=== PATIENT | male | born 1960 | race Caucasian/White ===

== ENCOUNTER 2023-05-06 09:55 | Outpatient (AMB) | payer OTHER, SELFPAY ==
--- NOTE | 2023-05-06 10:23 | HO.NEPHOV ---
HPI HPI Comments History of Present Illness Details I had the privilege of seeing Rik in follow-up of his advanced chronic kidney disease. He has significant proteinuria. He had a renal biopsy in the past which showed minimal change disease. He was treated with prednisone and subsequently with cyclosporin. He denies any uremic symptoms. He is concerned about is declining renal functions. He is due to see [facility] transplant team for evaluation for transplantation in the future. He denies any chest pain, shortness of breath, nausea vomiting, proximal nocturnal dyspnea, orthopnea, urinary symptoms, orthostatic symptoms. He has lost some weight the last couple months. He avoids nonsteroidal anti-inflammatories. He maintains good hydration. His serum creatinine is currently stable. [facility] Medical History (Updated 05/11/23 @ 12:40 by Praneeth Gutierrez MD) Chronic kidney disease, stage 3 unspecified Hypertension Proteinuria Impaired fasting glucose Hyperlipidemia Asthma Family History Father Diabetes Heart disease Mother Hypertension Social History Alcohol intake: never Patient Tobacco Use Status: Never used Tobacco Vital Signs 05/06/23 10:25 Height 5 ft 11 in Weight 227 lb 2 oz BMI 31.7 BP 130/80 Blood Pressure Location Lt brachial Position Sitting Pulse 58 Pulse Source Pulse Oximeter Pulse Oximetry (%) 99 Oxygen Delivery Method Room Air Physical Exam Vital Signs: Last Vital Signs Pulse 58 05/06/23 10:25 BP 130/80 05/06/23 10:25 Pulse Ox 99 05/06/23 10:25 Oxygen Delivery Method Room Air 05/06/23 10:25 BMI result Body Mass Index 31.7 Const General: comfortable and no acute distress Orientation/consciousness: patient oriented x3 HEENT Head: Yes normocephalic Mouth: Normal oral and palatal mucosa present Eyes EOM: EOMs intact bilaterally Neck Neck: Yes supple Resp Auscultation: clear to auscultation bilaterally Cardio Jugular venous distension: no JVD Rate: regular rate GI Palpation (GI): Soft to palpation Auscultation: normal bowel sounds General: Yes no CVA tenderness Back/Spine/Pelvis Back: no CVA tenderness Skin General skin exam: no rashes or lesions noted Neuro General: patient oriented x3 and moves all extremities Assessment & Plan Assessment & Plan (1) Proteinuria: Code(s): R80.9 - Proteinuria, unspecified Qualifiers: Proteinuria type: other Qualified Code(s): R80.8 - Other proteinuria (2) Hypertension: Code(s): I10 - Essential (primary) hypertension Qualifiers: Hypertension type: primary hypertension Qualified Code(s): I10 - Essential (primary) hypertension (3) Chronic kidney disease, stage 4 (severe): Code(s): N18.4 - Chronic kidney disease, stage 4 (severe) Talya Jolly has longstanding chronic kidney disease with hypertension & proteinuria. He had a renal biopsy in years close to 2018 which showed minimal change. Differential diagnosis was FSGS. He was treated with prednisone and cyclosporin at that time. He has lost significant weight. He is on benazepril. His serum creatinine is fairly stable. He has been referred for transplant evaluation. I have ordered a 24 urine collection for creatinine clearance. All the follow-up lab orders were done for management of his CKD. He maintains good hydration and avoids nonsteroidal anti-inflammatories. I did not make any medication changes today. More than 50% of the time spent discussing about his chronic kidney disease and for the future treatment strategies. Answered all his questions. Follow-up appointment given. Orders: Orders Blood Urea Nitrogen 05/06/23 I10 - Essential (primary) hypertension, I12.9 - Hypertensive chronic kidney disease with stage 1 through stage 4 chronic kidney disease, or unspecified chronic kidney disease, N18.4 - Chronic kidney disease, stage 4 (severe), R80.9 - Proteinuria, unspecified Electrolytes 05/06/23 I10 - Essential (primary) hypertension, I12.9 - Hypertensive chronic kidney disease with stage 1 through stage 4 chronic kidney disease, or unspecified chronic kidney disease, N18.4 - Chronic kidney disease, stage 4 (severe), R80.9 - Proteinuria, unspecified Complete Blood Count Auto Diff 05/06/23 I10 - Essential (primary) hypertension, I12.9 - Hypertensive chronic kidney disease with stage 1 through stage 4 chronic kidney disease, or unspecified chronic kidney disease, N18.4 - Chronic kidney disease, stage 4 (severe), R80.9 - Proteinuria, unspecified Ferritin 05/06/23 I10 - Essential (primary) hypertension, I12.9 - Hypertensive chronic kidney disease with stage 1 through stage 4 chronic kidney disease, or unspecified chronic kidney disease, N18.4 - Chronic kidney disease, stage 4 (severe), R80.9 - Proteinuria, unspecified IRON PROFILE 05/06/23 I10 - Essential (primary) hypertension, I12.9 - Hypertensive chronic kidney disease with stage 1 through stage 4 chronic kidney disease, or unspecified chronic kidney disease, N18.4 - Chronic kidney disease, stage 4 (severe), R80.9 - Proteinuria, unspecified Parathyroid Hormone Intact 05/06/23 I10 - Essential (primary) hypertension, I12.9 - Hypertensive chronic kidney disease with stage 1 through stage 4 chronic kidney disease, or unspecified chronic kidney disease, N18.4 - Chronic kidney disease, stage 4 (severe), R80.9 - Proteinuria, unspecified Phosphorus 05/06/23 I10 - Essential (primary) hypertension, I12.9 - Hypertensive chronic kidney disease with stage 1 through stage 4 chronic kidney disease, or unspecified chronic kidney disease, N18.4 - Chronic kidney disease, stage 4 (severe), R80.9 - Proteinuria, unspecified Creatinine Clearance Urine 05/06/23 I10 - Essential (primary) hypertension, I12.9 - Hypertensive chronic kidney disease with stage 1 through stage 4 chronic kidney disease, or unspecified chronic kidney disease, N18.4 - Chronic kidney disease, stage 4 (severe), R80.9 - Proteinuria, unspecified Creatinine 05/06/23 I10 - Essential (primary) hypertension, I12.9 - Hypertensive chronic kidney disease with stage 1 through stage 4 chronic kidney disease, or unspecified chronic kidney disease, N18.4 - Chronic kidney disease, stage 4 (severe), R80.9 - Proteinuria, unspecified Calcium 05/06/23 I10 - Essential (primary) hypertension, I12.9 - Hypertensive chronic kidney disease with stage 1 through stage 4 chronic kidney disease, or unspecified chronic kidney disease, N18.4 - Chronic kidney disease, stage 4 (severe), R80.9 - Proteinuria, unspecified Coding Level of Care Code Est Pt Level 4 (20937) Diagnoses Other proteinuria R80.8 Proteinuria type: other Primary hypertension I10 Hypertension type: primary hypertension Chronic kidney disease, stage 4 (severe) N18.4 Results Reviewed Nephrology Results: No Data to Display
[2023-05-06 10:25] VITALS: BP 130/80; PULSE 58; O2SAT 99; BMI 31.7
== END 2023-05-06 11:14 | disposition home or self-care (01) ==
PROVIDERS: PCP Internal Medicine Endocrinology, Diabetes & Metabolism; Visit Provider Internal Medicine Nephrology
DX: R80.8 Other proteinuria (principal); I12.9 Hypertensive chronic kidney disease with stage 1 through stage 4 chronic kidney disease, or unspecified chronic kidney disease; N18.4 Chronic kidney disease, stage 4 (severe)
CPT/HCPCS: 99214

== ENCOUNTER → 2023-05-06 09:55 | Outpatient (BNVA) | payer OTHER, SELFPAY | PROVIDERS: PCP Internal Medicine Endocrinology, Diabetes & Metabolism; Visit Provider Internal Medicine Nephrology ==

== ENCOUNTER 2023-07-08 09:55 | Outpatient (AMB) | payer OTHER, SELFPAY ==
--- NOTE | 2023-07-08 09:59 | HO.NEPHOV_ITS ---
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 He has significant proteinuria. He had a renal biopsy in the past which showed minimal change disease. He was treated with prednisone and subsequently with cyclosporin. He denies any uremic symptoms. He is concerned about is declining renal functions. He is due to see [facility] [place] transplant team for evaluation for transplantation in the future. He denies any chest pain, shortness of breath, nausea vomiting, proximal nocturnal dyspnea, orthopnea, urinary symptoms, orthostatic symptoms. He has lost some weight the last couple months. He avoids nonsteroidal anti-inflammatories. He maintains good hydration. His serum creatinine is currently stable. [facility] Medical History (Updated 07/08/23 @ 10:23 by Praneeth Gutierrez MD) Chronic kidney disease, stage 3 unspecified Hypertension Proteinuria Impaired fasting glucose Hyperlipidemia Asthma Family History Father Diabetes Heart disease Mother Hypertension Social History Alcohol intake: never Patient Tobacco Use Status: Never used Tobacco Physical Exam Vital Signs: Last Vital Signs Pulse 59 07/08/23 10:00 BP 138/84 07/08/23 10:00 Pulse Ox 98 07/08/23 10:00 Oxygen Delivery Method Room Air 07/08/23 10:00 BMI result Body Mass Index 32.5 Const General: comfortable and no acute distress Orientation/consciousness: patient oriented x3 HEENT Head: Yes normocephalic Mouth: Normal oral and palatal mucosa present Eyes EOM: EOMs intact bilaterally Neck Neck: Yes supple Resp Auscultation: clear to auscultation bilaterally Cardio Jugular venous distension: no JVD Rate: regular rate GI Palpation (GI): Soft to palpation Auscultation: normal bowel sounds General: Yes no CVA tenderness Back/Spine/Pelvis Back: no CVA tenderness Skin General skin exam: no rashes or lesions noted Neuro General: patient oriented x3 and moves all extremities Extrem General: Yes no pedal edema Results Reviewed Nephrology Results: No Data to Display Assessment & Plan Assessment & Plan (1) CKD stage 4 secondary to hypertension: Code(s): I12.9 - Hypertensive chronic kidney disease with stage 1 through stage 4 chronic kidney disease, or unspecified chronic kidney disease; N18.4 - Chronic kidney disease, stage 4 (severe) Category: Medical (2) Hypertension: Code(s): I10 - Essential (primary) hypertension Category: Medical Qualifiers: Hypertension type: primary hypertension Qualified Code(s): I10 - Essential (primary) hypertension (3) Proteinuria: Code(s): R80.9 - Proteinuria, unspecified Category: Medical Qualifiers: Proteinuria type: other Qualified Code(s): R80.8 - Other proteinuria (4) Metabolic acidosis: Code(s): E87.20 - Acidosis, unspecified Category: Medical Plan Rik has longstanding chronic kidney disease with hypertension & proteinuria. He had a renal biopsy in years close to 2018 which showed minimal change. Differential diagnosis was FSGS. He was treated with prednisone and cyclosporin at that time. He has lost significant weight. He is on benazepril. His serum creatinine is fairly stable. He has been referred for transplant evaluation. His 24 urine collection for creatinine clearance is pending. All the follow-up lab orders were done for management of his CKD. He maintains good hydration and avoids nonsteroidal anti-inflammatories. I did not make any medication changes today. More than 50% of the time spent discussing about his chronic kidney disease and for the future treatment strategies. Answered all his questions. Follow-up appointment given. Medications: New sodium bicarbonate 325 mg PO DAILY 30 days 30 tabs 4RF Coding Level of Care Code Est Pt Level 4 (39894) Diagnoses CKD stage 4 secondary to hypertension I12.9; N18.4 Primary hypertension I10 Hypertension type: primary hypertension Other proteinuria R80.8 Proteinuria type: other Metabolic acidosis E87.20
[2023-07-08 10:00] VITALS: BP 138/84; PULSE 59; O2SAT 98; BMI 32.5
== END 2023-07-08 10:31 | disposition home or self-care (01) ==
PROVIDERS: PCP Internal Medicine Endocrinology, Diabetes & Metabolism; Visit Provider Internal Medicine Nephrology
DX: I12.9 Hypertensive chronic kidney disease with stage 1 through stage 4 chronic kidney disease, or unspecified chronic kidney disease (principal); N18.4 Chronic kidney disease, stage 4 (severe); I10 Essential (primary) hypertension; R80.8 Other proteinuria; E87.20 Acidosis, unspecified
CPT/HCPCS: 99214

== ENCOUNTER → 2023-07-08 09:55 | Outpatient (BNVA) | payer OTHER, SELFPAY | PROVIDERS: PCP Internal Medicine Endocrinology, Diabetes & Metabolism; Visit Provider Internal Medicine Nephrology ==

== ENCOUNTER 2023-10-12 09:56 | Outpatient (AMB) | payer OTHER, SELFPAY ==
--- NOTE | 2023-10-12 10:01 | HO.NEPHOV_ITS ---
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 He has significant proteinuria. He had a renal biopsy in the past which showed minimal change disease. He was treated with prednisone and subsequently with cyclosporin. He denies any uremic symptoms. He is concerned about is declining renal functions. He is due to see cardiology on Oct for [facility] [place] transplant team for evaluation for transplantation in the future. He denies any chest pain, shortness of breath, nausea vomiting, proximal nocturnal dyspnea, orthopnea, urinary symptoms, orthostatic symptoms. He has lost some weight the last couple months. He avoids nonsteroidal anti-inflammatories. He maintains good hydration. His serum creatinine is worse. He denies uremic symptoms [facility] Medical History (Updated 07/08/23 @ 10:23 by Parneeth Gutierrez MD) Chronic kidney disease, stage 3 unspecified Hypertension Proteinuria Impaired fasting glucose Hyperlipidemia Asthma Family History Father Diabetes Heart disease Mother Hypertension Social History Alcohol intake: never Patient Tobacco Use Status: Never used Tobacco Review of Systems Const All systems reviewed & are unremarkable except as noted in HPI and below Physical Exam Vital Signs: Last Vital Signs Pulse 65 10/12/23 10:02 BP 150/72 H 10/12/23 10:02 Pulse Ox 97 10/12/23 10:02 Oxygen Delivery Method Room Air 10/12/23 10:02 BMI result Body Mass Index 32.0 Const General: comfortable and no acute distress Orientation/consciousness: patient oriented x3 HEENT Head: Yes normocephalic Mouth: Normal oral and palatal mucosa present Eyes EOM: EOMs intact bilaterally Neck Neck: Yes supple Resp Auscultation: clear to auscultation bilaterally Cardio Jugular venous distension: no JVD Rate: regular rate GI Palpation (GI): Soft to palpation Auscultation: normal bowel sounds General: Yes no CVA tenderness Back/Spine/Pelvis Back: no CVA tenderness Skin General skin exam: no rashes or lesions noted Neuro General: patient oriented x3 and moves all extremities Extrem General: Yes no pedal edema Results Reviewed Nephrology Results: No Data to Display Assessment & Plan Assessment & Plan (1) Chronic kidney disease, stage 4 (severe): Code(s): N18.4 - Chronic kidney disease, stage 4 (severe) Category: Medical (2) Metabolic acidosis: Code(s): E87.20 - Acidosis, unspecified Category: Medical (3) Proteinuria: Code(s): R80.9 - Proteinuria, unspecified Category: Medical Qualifiers: Proteinuria type: other Qualified Code(s): R80.8 - Other proteinuria (4) Hypertension: Code(s): I10 - Essential (primary) hypertension Category: Medical Qualifiers: Hypertension type: primary hypertension Qualified Code(s): I10 - Essential (primary) hypertension Talya Jolly has longstanding chronic kidney disease with hypertension & proteinuria. He had a renal biopsy in years close to 2018 which showed minimal change. Differential diagnosis was FSGS. He was treated with prednisone and cyclosporin at that time. He has lost significant weight. He is on benazepril. His serum creatinine is fairly stable. He has been seen for transplant evaluation. His 24 urine collection for creatinine clearance is pending.I incre ased his NaHCO3 to 650 mg bid. All the follow-up lab orders were done for management of his CKD. He maintains good hydration and avoids nonsteroidal anti-inflammatories. I did not make any other medication changes today. More than 50% of the time spent discussing about his chronic kidney disease and for the future treatment strategies. Answered all his questions. Follow-up appointment given. Orders: Orders Electrolytes Today E87.20 - Acidosis, unspecified, I10 - Essential (primary) hypertension, N18.4 - Chronic kidney disease, stage 4 (severe), R80.8 - Other proteinuria Calcium Today E87.20 - Acidosis, unspecified, I10 - Essential (primary) hypertension, N18.4 - Chronic kidney disease, stage 4 (severe), R80.8 - Other proteinuria Phosphorus Today E87.20 - Acidosis, unspecified, I10 - Essential (primary) hypertension, N18.4 - Chronic kidney disease, stage 4 (severe), R80.8 - Other proteinuria Complete Blood Count Auto Diff Today E87.20 - Acidosis, unspecified, I10 - Essential (primary) hypertension, N18.4 - Chronic kidney disease, stage 4 (severe), R80.8 - Other proteinuria Creatinine Today E87.20 - Acidosis, unspecified, I10 - Essential (primary) hypertension, N18.4 - Chronic kidney disease, stage 4 (severe), R80.8 - Other proteinuria Blood Urea Nitrogen Today E87.20 - Acidosis, unspecified, I10 - Essential (primary) hypertension, N18.4 - Chronic kidney disease, stage 4 (severe), R80.8 - Other proteinuria Medications: Changed From sodium bicarbonate 325 mg PO DAILY 90 tabs 1RF To sodium bicarbonate 650 mg PO DAILY 30 days 30 tabs 3RF Coding Level of Care Code Est Pt Level 4 (04828) Diagnoses Chronic kidney disease, stage 4 (severe) N18.4 Metabolic acidosis E87.20 Other proteinuria R80.8 Proteinuria type: other Primary hypertension I10 Hypertension type: primary hypertension
[2023-10-12 10:02] VITALS: BP 150/72; PULSE 65; O2SAT 97; BMI 32.0
== END 2023-10-12 10:45 | disposition home or self-care (01) ==
PROVIDERS: PCP Internal Medicine Endocrinology, Diabetes & Metabolism; Visit Provider Internal Medicine Nephrology
DX: I12.9 Hypertensive chronic kidney disease with stage 1 through stage 4 chronic kidney disease, or unspecified chronic kidney disease (principal); N18.4 Chronic kidney disease, stage 4 (severe); R80.8 Other proteinuria; E87.21 Acute metabolic acidosis
CPT/HCPCS: 99214

== ENCOUNTER → 2023-10-12 09:56 | Outpatient (BNVA) | payer OTHER, SELFPAY | PROVIDERS: PCP Internal Medicine Endocrinology, Diabetes & Metabolism; Visit Provider Internal Medicine Nephrology ==

== ENCOUNTER 2023-12-09 15:27 | Outpatient (AMB) | payer OTHER, SELFPAY ==
--- NOTE | 2023-12-09 15:50 | HO.NEPHOV ---
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 He has significant proteinuria. He had a renal biopsy in the past which showed minimal change disease. He denies any uremic symptoms. He is concerned about is declining renal functions. He is due to see cardiology for stress test [place] [facility] [place] for evaluation for transplantation in the future ( Dec ). He also has a tx eval appt in [place] on Jan 10. He denies any chest pain, shortness of breath, nausea vomiting, proximal nocturnal dyspnea, orthopnea, urinary symptoms, orthostatic symptoms. He avoids nonsteroidal anti-inflammatories. He maintains good hydration. His serum creatinine is worse. He denies uremic symptoms [facility] Medical History (Updated 10/12/23 @ 11:06 by Praneeth Gutierrez MD) Chronic kidney disease, stage 3 unspecified Hypertension Proteinuria Impaired fasting glucose Hyperlipidemia Asthma Family History Father Diabetes Heart disease Mother Hypertension Social History Alcohol intake: never Patient Tobacco Use Status: Never used Tobacco Review of Systems Const All systems reviewed & are unremarkable except as noted in HPI and below Physical Exam Vital Signs: Last Vital Signs Pulse 63 12/09/23 15:51 BP 152/72 H 12/09/23 15:51 Pulse Ox 99 12/09/23 15:51 Oxygen Delivery Method Room Air 12/09/23 15:51 BMI result Body Mass Index 32.8 Const General: comfortable and no acute distress Orientation/consciousness: patient oriented x3 HEENT Head: Yes normocephalic Mouth: Normal oral and palatal mucosa present Eyes EOM: EOMs intact bilaterally Neck Neck: Yes supple Resp Auscultation: clear to auscultation bilaterally Cardio Jugular venous distension: no JVD Rate: regular rate GI Palpation (GI): Soft to palpation Auscultation: normal bowel sounds General: Yes no CVA tenderness Back/Spine/Pelvis Back: no CVA tenderness Skin General skin exam: no rashes or lesions noted Neuro General: patient oriented x3 and moves all extremities Extrem General: Yes no pedal edema Results Reviewed Nephrology Results: No Data to Display Assessment & Plan Assessment & Plan (1) CKD (chronic kidney disease) stage 5, GFR less than 15 ml/min: Code(s): N18.5 - Chronic kidney disease, stage 5 Category: Medical (2) Metabolic acidosis: Code(s): E87.20 - Acidosis, unspecified Category: Medical (3) Proteinuria: Code(s): R80.9 - Proteinuria, unspecified Category: Medical Qualifiers: Proteinuria type: other Qualified Code(s): R80.8 - Other proteinuria (4) Hypertension: Code(s): I10 - Essential (primary) hypertension Category: Medical Qualifiers: Hypertension type: primary hypertension Qualified Code(s): I10 - Essential (primary) hypertension Plan Rik has longstanding chronic kidney disease with hypertension & proteinuria. He had a renal biopsy in years close to 2018 which showed minimal change. Differential diagnosis was FSGS. He was treated with prednisone and cyclosporin at that time. He has lost significant weight. He is on benazepril. His serum creatinine is worse. He has been seen for transplant evaluation. I increased his NaHCO3 to 1300 mg AM and 650 mg PM. I have ordered 667 mg PO tid with meals. All the follow-up lab orders were done for management of his CKD. He maintains good hydration and avoids nonsteroidal anti-inflammatories. I did not make any other medication changes today. More than 50% of the time spent discussing about his chronic kidney disease and for the future treatment strategies. Answered all his questions. Follow-up appointment given. Orders: Orders Blood Urea Nitrogen 6 Weeks N18.5 - Chronic kidney disease, stage 5 Electrolytes 6 Weeks N18.5 - Chronic kidney disease, stage 5 Phosphorus 6 Weeks N18.5 - Chronic kidney disease, stage 5 Creatinine 6 Weeks N18.5 - Chronic kidney disease, stage 5 Calcium 6 Weeks N18.5 - Chronic kidney disease, stage 5 Medications: New calcium acetate to be taken with meals 667 mg PO TID 30 days 90 tabs 4RF Coding Level of Care Code Est Pt Level 4 (38375) Diagnoses CKD (chronic kidney disease) stage 5, GFR less than 15 ml/min N18.5 Metabolic acidosis E87.20 Other proteinuria R80.8 Proteinuria type: other Primary hypertension I10 Hypertension type: primary hypertension
[2023-12-09 15:51] VITALS: BP 152/72; PULSE 63; O2SAT 99; BMI 32.8
== END 2023-12-09 16:27 | disposition home or self-care (01) ==
PROVIDERS: PCP Internal Medicine Endocrinology, Diabetes & Metabolism; Visit Provider Internal Medicine Nephrology
DX: N18.5 Chronic kidney disease, stage 5 (principal); E87.20 Acidosis, unspecified; R80.8 Other proteinuria; I12.0 Hypertensive chronic kidney disease with stage 5 chronic kidney disease or end stage renal disease
CPT/HCPCS: 99214

== ENCOUNTER → 2023-12-09 15:27 | Outpatient (BNVA) | payer OTHER, SELFPAY | PROVIDERS: PCP Internal Medicine Endocrinology, Diabetes & Metabolism; Visit Provider Internal Medicine Nephrology ==

== ENCOUNTER 2024-02-08 11:08 | Outpatient (AMB) | payer OTHER, SELFPAY ==
--- NOTE | 2024-02-08 11:11 | HO.NEPHOV_ITS ---
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 He has significant proteinuria. He had a renal biopsy in the past which showed minimal change disease. He denies any uremic symptoms. He is concerned about his advanced CKD. He had a stress test for [facility] transplant team for evaluation for transplantion which showed reversible defect . He is also listed in [facility] for transplant. He denies any chest pain, shortness of breath, nausea vomiting, proximal nocturnal dyspnea, orthopnea, urinary symptoms, orthostatic symptoms. He avoids nonsteroidal anti-inflammatories. He maintains good hydration. His acidosis is worse. He denies uremic symptoms [facility] Medical History (Updated 10/12/23 @ 11:06 by Praneeth Gutierrez MD) Chronic kidney disease, stage 3 unspecified Hypertension Proteinuria Impaired fasting glucose Hyperlipidemia Asthma Family History Father Diabetes Heart disease Mother Hypertension Social History Alcohol intake: never Patient Tobacco Use Status: Never used Tobacco Review of Systems Const All systems reviewed & are unremarkable except as noted in HPI and below Physical Exam Vital Signs: Last Vital Signs Pulse 72 02/08/24 11:12 BP 164/70 H 02/08/24 11:12 Pulse Ox 97 02/08/24 11:12 Oxygen Delivery Method Room Air 02/08/24 11:12 BMI result Body Mass Index 31.2 Const General: comfortable and no acute distress Orientation/consciousness: patient oriented x3 HEENT Head: Yes normocephalic Mouth: Normal oral and palatal mucosa present Eyes EOM: EOMs intact bilaterally Neck Neck: Yes supple Resp Auscultation: clear to auscultation bilaterally Cardio Jugular venous distension: no JVD Rate: regular rate GI Palpation (GI): Soft to palpation Auscultation: normal bowel sounds General: Yes no CVA tenderness Back/Spine/Pelvis Back: no CVA tenderness Skin General skin exam: no rashes or lesions noted Neuro General: patient oriented x3 and moves all extremities Extrem General: Yes no pedal edema Results Reviewed Nephrology Results: No Data to Display Assessment & Plan Assessment & Plan (1) CKD (chronic kidney disease) stage 5, GFR less than 15 ml/min: Code(s): N18.5 - Chronic kidney disease, stage 5 Category: Medical (2) Metabolic acidosis: Code(s): E87.20 - Acidosis, unspecified Category: Medical (3) Proteinuria: Code(s): R80.9 - Proteinuria, unspecified Category: Medical Qualifiers: Proteinuria type: other Qualified Code(s): R80.8 - Other proteinuria (4) Hypertension: Code(s): I10 - Essential (primary) hypertension Category: Medical Qualifiers: Hypertension type: primary hypertension Qualified Code(s): I10 - Essential (primary) hypertension Plan Rik has longstanding chronic kidney disease with hypertension & proteinuria. He had a renal biopsy in years close to 2018 which showed minimal change. Differential diagnosis was FSGS. He was treated with prednisone and cyclosporin at that time. He has lost significant weight. He is on benazepril. His serum creatinine is worse. He is listed in [facility] and [facility]. He has a reversible defect in stress test recently which he is going to discuss with cardiology. He may need coronary angiogram. If he does, we may have to initiate him on renal replacement before angio. He is aware of this. I increased his NaHCO3 to 1300 mg tid. He can continue calcium acetate 667 mg PO tid with meals. He maintains good hydration and avoids nonsteroidal anti-inflammatories. I did not make any other medication changes today. Answered all his questions. Orders: Orders Electrolytes 2 Weeks N18.5 - Chronic kidney disease, stage 5 Blood Urea Nitrogen 1 Month N18.5 - Chronic kidney disease, stage 5 Creatinine 2 Weeks N18.5 - Chronic kidney disease, stage 5 Blood Urea Nitrogen 2 Weeks N18.5 - Chronic kidney disease, stage 5 Electrolytes 1 Month N18.5 - Chronic kidney disease, stage 5 Creatinine 1 Month N18.5 - Chronic kidney disease, stage 5 Coding Level of Care Code Est Pt Level 4 (72946) Diagnoses CKD (chronic kidney disease) stage 5, GFR less than 15 ml/min N18.5 Metabolic acidosis E87.20 Other proteinuria R80.8 Proteinuria type: other Primary hypertension I10 Hypertension type: primary hypertension
[2024-02-08 11:12] VITALS: BP 164/70; PULSE 72; O2SAT 97; BMI 31.2
--- OUTSIDE RECORDS SUMMARY | 2024-02-15 13:18 | XMS_ITS | Continuity of Care Document ---
Author Organization [facility] [address] [place] [address] Phone [phone] Care Team Providers Care Web Marketing Manager Name Role Phone Susan Roque M.D. Care Team Informati on Osteopathy Doctor [phone] Problems Active Problems Provider Date Essential hypertension Abigail Posey Onset: 11/20/2021 Asthma Susan Roque M.D. Ons et: 11/20/2021 Dyslipidemia Susan Roque M.D. Ons et: 11/20/2021 Gout Susan Roque M.D. Ons et: 11/20/2021 Obesity Susan Roque M.D. Ons et: 11/30/2021 Minimal change disease Abigail Posey Onset: 03/12/2023 Chronic kidney disease stage 4 Susan ronquillo M.D. Onset: 03/21/2023 Type 2 diabetes mellitus Susan Roque M.D. Onset: 03/21/2023 Anemia in chronic kidney disease Susan Locke M.D. 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 09/06/2023 Doxazosin Ydfyllzw3lf Tablets Take 1 Tablet By Mouth Every Day as Directed 90tabs Susan Lagos-Rad, M.D. 06/25/2022 Metoprolol Succinate ER50mg Tablets ER 24HR Take 1 Tablet By Mouth Every Day 90tamarcia Roque M.D. 06/25/2022 Advair [id number]/Act Aerosol Unknown Benazepril LOK85ah Tablets 1 tablet by mouth every day 90tamarcia Roque M.D. Nifedipine ER60mg Tablets ER 24HR 1 tab by mouth twice a day Unknown Montelukast Oplfif11lj Tablets 1 by mouth every day Unknown Multivitamin AdultsTablets 1 by mouth every day Susan Roque M.D. ProbioticTablets DR 1 by mouth every day Susan Roque M.D. Vital Signs Date Vital Result Comment 09/06/2023 7:59pm BP Systolic 128 mmHg BP Diastolic 82 mmHg Results Test Acquired Date Facility Test Result H/L Range Note Laboratory test finding 09/06/2023 Inhouse Glucose Fingerstick 84 Hemoglobin A1c 5.5% Comprehensive Metabolic Panl 03/12/2023 [facility] Glucose 140 mg/dL High (70-99) BUN 53 mg/dL High (8-23) Creatinine 4.1 mg/dL High (0.7-1. 2) Sodium 139 mmol/L (133-14 5) Potassium 5.4 mmol/L High (3.6-5. 2) Chloride 105 mmol/L (98-107 ) Bicarbonate 23 mmol/L (22-29) Anion Gap 11 (4-17) Albumin 4.3 GM/DL (3.4-4. 8) Calcium 9.3 mg/dL (8.6-10 .5) Bilirubin,Total 0.3 mg/dL (0-1.2 ) Total Protein 6.9 GM/DL (6.2-8. 2) Ag Ratio 1.7 Ast 15 U/L (0-40) Alk Phos 107 U/L (40-129 ) Alt 13 U/L (0-41) Estimated GFR Creatinine 16 ML/MIN/1.73 M2 1 Lipid Panel 03/12/2023 [facility] Cholesterol, Total 166 mg/dL (<200) Triglyceride 134 mg/dL (<150) HDL Chol 34 mg/dL Low (>39) LDL Cholesterol , Calculated 105 mg/dL (0-130) Non HDL Cholesterol (Calc) 132 mg/dL (<160) Laboratory test finding 03/12/2023 [facility] Cortisol 14.8 g /dL 2 Complete Abc With Diff 03/12/2023 [facility] WBC 11.1 K/MM3 High (4.0-11 .0) RBC 4.23 M/MM3 Low (4.70-6 .10) HGB 12.5 GM/DL Low (13.7-1 7.1) HCT 38.4 % Low (40.5-5 0.0) MCV 90.8 FL (80.0-9 4.0) MCH 29.6 pg (27.0-3 4.0) MCHC 32.6 g/dL Low (33.0-3 7.0) PLT 187 K/MM3 (150-46 0) RDW-SD 46.5 FL (<47.0) MPV 9.6 FL (9.4-12 .4) Automated NRBC 0.0 #/100WBC'S Abs. NRBC 0.0 K/MM3 Neut # 9.0 K/MM3 High (1.3-7. 0) Lymph # 1.0 K/MM3 (0.8-3. 1) [place]# 0.9 K/MM3 (0.4-1. 3) Eo # 0.2 K/MM3 (0.0-0. 4) Baso # 0.0 K/MM3 (0.0-0. 1) Abs. Imm Gran 0.0 K/MM3 Neut 80.9 % High (44-76) Lymph 9.1 % Low (15-43) Monocyte 7.7 % (4.5-10 .5) Eo 1.6 % (0-6) Baso 0.4 % (0-2) Imm Gran 0.3 % Iron & Tibc 03/12/2023 [facility] Iron 32 g /dL Low (45-160 ) Unsaturated Iro n Binding [place] 209 g /dL (110-37 0) Est T. Iron Bin d Capacity 241 g /dL (155-53 0) % Iron Saturation 13 % Low (20-55 ) Immunofixation Serum 03/12/2023 [facility] Immunoglobulin Igg 798 mg/dL (700-16 00) Immunoglobulin Iga 201 mg/dL (70-400 ) Immunoglobulin Igm 54 mg/dL (40-230 ) Immunofix Normal immunofix <SEE NOTE> 3 Laboratory test finding 03/12/2023 [facility] Ferritin 690 NG/ML High (16-294 ) PSA Screen 0.9 NG/ML (0-4) 4 Laboratory test finding 03/12/2023 Inhouse Glucose Fingerstick 139 Hemoglobin A1c 5.6% Renal Function Panel 09/30/2022 [facility] Glucose 105 mg/dL High (70-99) BUN 68 mg/dL High (8-23) Creatinine 4.0 mg/dL High (0.7-1. 2) Sodium 140 mmol/L (133-14 5) Potassium 4.4 mmol/L (3.6-5. 2) Chloride 104 mmol/L (98-107 ) Bicarbonate 22 mmol/L (22-29) Anion Gap 14 (4-17) Albumin 4.3 GM/DL (3.4-4. 8) Calcium 9.4 mg/dL (8.6-10 .5) Phosphorus 5.0 mg/dL High (2.5-4. 5) Estimated GFR Creatinine 16 ML/MIN/1.73 M2 5 TP/CR Ratio, Urine 09/30/2022 [facility] TP/CR Ratio 3.44 High (0-0.2) Urine Protein 249 mg/dL Urine Creat 72.5 mg/dL Laboratory test finding 09/30/2022 [facility] Cyclosporine 64 NG/ML Low (100-35 0) Renal Function Panel 08/19/2022 [facility] Glucose 110 mg/dL High (70-99) BUN 65 mg/dL High (8-23) Creatinine 3.9 mg/dL High (0.7-1. 2) Sodium 138 mmol/L (133-14 5) Potassium 4.4 mmol/L (3.6-5. 2) Chloride 103 mmol/L (98-107 ) Bicarbonate 22 mmol/L (22-29) Anion Gap 13 (4-17) Albumin 4.4 GM/DL (3.4-4. 8) Calcium 9.8 mg/dL (8.6-10 .5) Phosphorus 4.7 mg/dL High (2.5-4. 5) Estimated GFR Creatinine 17 ML/MIN/1.73 M2 6 TP/CR Ratio, Urine 08/19/2022 [facility] TP/CR Ratio 3.44 High (0-0.2) Urine Protein 249 mg/dL Urine Creat 72.5 mg/dL Laboratory test finding 11/25/2021 [facility] Cortisol 2.1 g /dL 7 1 Creatinine based est imated glomerular filtration (eGFR) in adults is calculated using the National [employer] recommended 202 CKD-EPI equation. Estimates GFR from serum creatinine, age and sex. 2 Reference Range: 6-10 am: 6.0-18.4 ug/dL 4-8 pm: 2.7-10.5 ug/dL 3 Interpreted by Tamika Nobles MD 4 TEST PERFORMED USING THE CHRISTOPHE ELECTROCHEMILLUMINESCENCE TOTAL PSA ASSAY. PSA VALUES OBTAINED WITH OTHER ASSAY METHODS OR KITS CANNOT BE USED INTERCHANGEABLY. 5 Creatinine based est imated glomerular filtration (eGFR) in adults is calculated using the National Kid[employer] recommended 202 CKD-EPI equation. Estimates GFR from serum creatinine, age and sex. 6 Creatinine based est imated glomerular filtration (eGFR) in adults is calculated using the National [employer] recommended 202 CKD-EPI equation. Estimates GFR from serum creatinine, age and sex. 7 Reference Range: 6-10 am: 6.0-18.4 ug/dL 4-8 pm: 2.7-10.5 ug/dL Procedures Date Code Description Status 03/12/2023 98274 Collection Of Venous Blood B y Venipuncture Completed 11/20/2021 NSHOWOFF No Show Office Visit Complet ed Medical Devices Description No Information Available Encounters Type Date Location Provider Dx Diagnosis Office Visit 09/06/2023 1:30p Main Office Susan Roque M.D. I10 Essential (primary) hypertension N18.4 Chronic kidney disea se, stage 4 (severe) E66.9 Obesity, unspecified J45.40 Moderate persistent asthma, uncomplicated Z00.00 Encntr for general a dult medical exam w/o abnormal findings Z68.32 Body mass index [BMI ] 32.0-32.9, adult Assessments Date Code Description Provider 09/06/2023 I10 Essential (primary) hyperten zaheer Abigail Posey.D. 09/06/2023 N18.4 Chronic kidney d isease, stage 4 (severe) Susan Roque M.D. 09/06/2023 E66.9 Obesity, unspecified Elviawalter pichardo Delilah Roque 09/06/2023 J45.40 Moderate persist ent asthma, uncomplicated Susan Roque M.D. 09/06/2023 Z00.00 Encounter for ge neral adult medical examination without abnormal findings Susan Roque M.D. 09/06/2023 Z68.32 Body mass index [BMI] 32.0-3 2.9, adult Susan Roque M.D. Plan of Treatment Future Appointment(s):* 03/10/2024 8:15 am - Susan Roque M.D. at Main Office 09/06/2023 - Susan Roque M.D.* I10 Essential (primary) hypertension * N18.4 Chronic kidney disease, stage 4 (severe) * E66.9 Obesity, unspecified * J45.40 Moderate persistent asthma, uncomplicated * Z00.00 Encounter for general adult medical examination without abnormal findings * Z68.32 Body mass index [BMI] 32.0-32.9, adult * Functional Status Description No Information Available Mental Status Description No Information Available Referrals Refer to Reason for Referral Status Appt Chip e [facility] Had a nuclear stress test done and showed a mild heart attack Created [address] [facility] [address] [facility], [address] [place] [address] [phone] Matt Dacosta MD Closed [address] [place] [address] [phone] [facility] HOME SLEEP STUDY RULE OUT SLEEP APNEA DX OBESITY, HYPERTENSION, DIABETES AND CHRONIC KIDNEY DISEASE STAGE 4 Closed [address] [place] [address] [phone] Matt Dacosta MD CHRONIC KIDNEY DISEASE Closed [address] [place] [address] [phone]
== END 2024-02-08 12:03 | disposition home or self-care (01) ==
PROVIDERS: PCP Internal Medicine Endocrinology, Diabetes & Metabolism; Visit Provider Internal Medicine Nephrology
DX: N18.5 Chronic kidney disease, stage 5 (principal); E87.20 Acidosis, unspecified; R80.8 Other proteinuria; I12.0 Hypertensive chronic kidney disease with stage 5 chronic kidney disease or end stage renal disease
CPT/HCPCS: 99214

== ENCOUNTER → 2024-02-08 11:08 | Outpatient (BNVA) | payer OTHER, SELFPAY | PROVIDERS: PCP Internal Medicine Endocrinology, Diabetes & Metabolism; Visit Provider Internal Medicine Nephrology ==

== ENCOUNTER 2024-03-09 09:26 | Outpatient (AMB) | payer OTHER, SELFPAY ==
--- OUTSIDE RECORDS SUMMARY | 2024-03-09 09:29 | XMS_ITS | Continuity of Care Document ---
Author Organization [facility] [address] [place] [address] Phone [phone] Care Team Providers Care Network Field Engineer Name Role Phone Susan Roque M.D. 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 09/06/2023 Doxazosin Uioovjev2ph Tablets Take 1 Tablet By Mouth Every Day as Directed 90tabs Susan Lagos-Rad, M.D. 06/25/2022 Metoprolol Succinate ER50mg Tablets ER 24HR Take 1 Tablet By Mouth Every Day 90tamarcia Roque M.D. 06/25/2022 Advair Gfrvrt451-24qlx/Act Aerosol Unknown Benazepril PRZ53dv Tablets 1 tablet by mouth every day 90tamarcia Roque M.D. Nifedipine ER60mg Tablets ER 24HR 1 tab by mouth twice a day Unknown Montelukast Ivogsc47ck Tablets 1 by mouth every day Unknown [...] Hemoglobin A1c 5.5% Comprehensive Metabolic Panl 03/12/2023 [facility] Glucose 140 mg/dL High [...] 16 ML/MIN/1.73 M2 1 Lipid Panel 03/12/2023 [facility] Cholesterol, Total 166 mg/dL (<200) Triglyceride 134 mg/dL (<150) HDL Chol 34 mg/dL Low (>39) LDL Cholesterol , Calculated 105 mg/dL (0-130) Non HDL Cholesterol (Calc) 132 mg/dL (<160) Laboratory test finding 03/12/2023 [facility] Cortisol 14.8 g /dL 2 Complete Abc With Diff 03/12/2023 [facility] WBC 11.1 K/MM3 High [...] 0) Lymph # 1.0 K/MM3 (0.8-3. 1) [place]# 0.9 K/MM3 (0.4-1. 3) Eo # 0.2 K/MM3 (0.0-0. 4) Baso # 0.0 K/MM3 (0.0-0. 1) Abs. Imm Gran 0.0 K/MM3 Neut 80.9 % High (44-76) Lymph 9.1 % Low (15-43) Monocyte 7.7 % (4.5-10 .5) Eo 1.6 % (0-6) Baso 0.4 % (0-2) Imm Gran 0.3 % Iron & Tibc 03/12/2023 [facility] Iron 32 g /dL Low (45-160 ) Unsaturated Iro n Binding [place] 209 g /dL (110-37 0) Est T. Iron Bin d Capacity 241 g /dL (155-53 0) % Iron Saturation 13 % Low (20-55 ) Immunofixation Serum 03/12/2023 [facility] Immunoglobulin Igg 798 mg/dL (700-16 00) Immunoglobulin Iga 201 mg/dL (70-400 ) Immunoglobulin Igm 54 mg/dL (40-230 ) Immunofix Normal immunofix <SEE NOTE> 3 Laboratory test finding 03/12/2023 [facility] Ferritin 690 NG/ML High (16-294 ) PSA Screen 0.9 NG/ML (0-4) 4 Laboratory test finding 03/12/2023 Inhouse Glucose Fingerstick 139 Hemoglobin A1c 5.6% Renal Function Panel 09/30/2022 [facility] Glucose 105 mg/dL High [...] ML/MIN/1.73 M2 5 TP/CR Ratio, Urine 09/30/2022 [facility] TP/CR Ratio 3.44 High (0-0.2) Urine Protein 249 mg/dL Urine Creat 72.5 mg/dL Laboratory test finding 09/30/2022 [facility] Cyclosporine 64 NG/ML Low (100-35 0) Renal Function Panel 08/19/2022 [facility] Glucose 110 mg/dL High [...] ML/MIN/1.73 M2 6 TP/CR Ratio, Urine 08/19/2022 [facility] TP/CR Ratio 3.44 High (0-0.2) Urine Protein 249 mg/dL Urine Creat 72.5 mg/dL Laboratory test finding 11/25/2021 [facility] Cortisol 2.1 g /dL [...] ug/dL Procedures Date Code Description Status 03/12/2023 74598 Collection Of Venous Blood B y Venipuncture [...] Roque M.D. Plan of Treatment Future Appointment(s):* 04/25/2024 8:45 am - Susan Roque M.D. at Main [...] Reason for Referral Status Appt Chip e [facility] Had a nuclear stress test done and showed a mild heart attack Created [address] [facility], [address] [place] [address] [phone] Matt Dacosta MD Closed [address] [place] [address] [phone] [facility] HOME SLEEP STUDY RULE OUT SLEEP APNEA DX OBESITY, HYPERTENSION, DIABETES AND CHRONIC KIDNEY DISEASE STAGE 4 Closed [address] [facility] [address] [place] [address] [phone] Matt Dacosta MD CHRONIC KIDNEY DISEASE Closed [address] [place] [address] [phone]
--- NOTE | 2024-03-09 09:48 | HO.NEPHOV ---
Vital Signs 03/09/24 09:51 Height 5 ft 11 in Weight 214 lb 6 oz BMI 29.9 BP 130/60 Blood Pressure Location Lt brachial Position Sitting Pulse 73 Pulse Source Pulse Oximeter Pulse Oximetry (%) 97 Oxygen Delivery Method Room Air Intake Visit Reasons: 1mon follow up w/labs-Conf Director Payment Required: No Accompanied by: Self / Same As Patient Allergies No Known Allergies Allergy (Verified 03/09/24 09:51) HPI Comments Details: Rik was seen in follow-up of his advanced chronic kidney disease. He has significant proteinuria. He had a renal biopsy in the past which showed minimal change disease. He is on [facility] transplant active list He denies any chest pain,proximal nocturnal dyspnea, orthopnea, urinary symptoms, orthostatic symptoms. He has unintentional weight loss and lack of appetite. He avoids nonsteroidal anti-inflammatories. He maintains good hydration. His acidosis is worse. [facility] Medical History (Updated 10/12/23 @ 11:06 by Praneeth Gutierrez MD) Chronic kidney disease, stage 3 unspecified Hypertension Proteinuria Impaired fasting glucose Hyperlipidemia Asthma Family History Father Diabetes Heart disease Mother Hypertension Social History Alcohol intake: never Patient Tobacco Use Status: Never used Tobacco Review of Systems Const All systems reviewed & are unremarkable except as noted in HPI and below Physical Exam Vital Signs: Last Vital Signs Pulse 73 03/09/24 09:51 BP 130/60 03/09/24 09:51 Pulse Ox 97 03/09/24 09:51 Oxygen Delivery Method Room Air 03/09/24 09:51 BMI result Body Mass Index 29.9 Const General: comfortable and no acute distress Orientation/consciousness: patient oriented x3 HEENT Head: Yes normocephalic Mouth: Normal oral and palatal mucosa present Eyes EOM: EOMs intact bilaterally Neck Neck: Yes supple Resp Auscultation: clear to auscultation bilaterally Cardio Jugular venous distension: no JVD Rate: regular rate GI Palpation (GI): Soft to palpation Auscultation: normal bowel sounds General: Yes no CVA tenderness Back/Spine/Pelvis Back: no CVA tenderness Skin General skin exam: no rashes or lesions noted Neuro General: patient oriented x3 and moves all extremities Extrem General: Yes no pedal edema Results Reviewed Nephrology Results: No Data to Display Assessment & Plan Assessment & Plan (1) CKD (chronic kidney disease) stage 5, GFR less than 15 ml/min: Code(s): N18.5 - Chronic kidney disease, stage 5 Category: Medical (2) Metabolic acidosis: Code(s): E87.20 - Acidosis, unspecified Category: Medical (3) Hypertension: Code(s): I10 - Essential (primary) hypertension Category: Medical Qualifiers: Hypertension type: primary hypertension Qualified Code(s): I10 - Essential (primary) hypertension Plan Rik has longstanding chronic kidney disease with hypertension & proteinuria. He had a renal biopsy in years close to 2018 which showed minimal change. Differential diagnosis was FSGS. He was treated with prednisone and cyclosporin at that time. He has lost significant weight. He is on benazepril. He is listed in [facility]. He should continue NaHCO3 1300 mg tid. He can continue calcium acetate 667 mg PO tid with meals. He maintains good hydration and avoids nonsteroidal anti-inflammatories. I did not make any other medication changes today. I have arranged for PD catheter in preparation for PD. Answered all his questions Orders: Orders Blood Urea Nitrogen Today E87.20 - Acidosis, unspecified, I10 - Essential (primary) hypertension, N18.5 - Chronic kidney disease, stage 5 Electrolytes Today E87.20 - Acidosis, unspecified, I10 - Essential (primary) hypertension, N18.5 - Chronic kidney disease, stage 5 Calcium Today E87.20 - Acidosis, unspecified, I10 - Essential (primary) hypertension, N18.5 - Chronic kidney disease, stage 5 Creatinine Today E87.20 - Acidosis, unspecified, I10 - Essential (primary) hypertension, N18.5 - Chronic kidney disease, stage 5 Phosphorus Today E87.20 - Acidosis, unspecified, I10 - Essential (primary) hypertension, N18.5 - Chronic kidney disease, stage 5 Complete Blood Count Auto Diff Today E87.20 - Acidosis, unspecified, I10 - Essential (primary) hypertension, N18.5 - Chronic kidney disease, stage 5 Medications: Changed From sodium bicarbonate 650 mg PO TID 270 tabs 0RF To sodium bicarbonate 1,300 mg (2 x 650 mg) PO TID 270 tabs 3RF Coding Level of Care Code Est Pt Level 4 (77875) Diagnoses CKD (chronic kidney disease) stage 5, GFR less than 15 ml/min N18.5 Metabolic acidosis E87.20 Primary hypertension I10 Hypertension type: primary hypertension
[2024-03-09 09:51] VITALS: BP 130/60; PULSE 73; O2SAT 97; BMI 29.9
== END 2024-03-09 10:18 | disposition home or self-care (01) ==
PROVIDERS: PCP Internal Medicine Endocrinology, Diabetes & Metabolism; Visit Provider Internal Medicine Nephrology
DX: N18.5 Chronic kidney disease, stage 5 (principal); E87.20 Acidosis, unspecified; I12.0 Hypertensive chronic kidney disease with stage 5 chronic kidney disease or end stage renal disease
CPT/HCPCS: 99214

== ENCOUNTER → 2024-03-09 09:26 | Outpatient (BNVA) | payer OTHER, SELFPAY | PROVIDERS: PCP Internal Medicine Endocrinology, Diabetes & Metabolism; Visit Provider Internal Medicine Nephrology ==

== ENCOUNTER → 2024-04-08 | Outpatient (BNV) | payer OTHER, SELFPAY | PROVIDERS: PCP Internal Medicine Endocrinology, Diabetes & Metabolism; Visit Provider Internal Medicine Nephrology | DX: N18.6 End stage renal disease (principal) | CPT/HCPCS: 90962 ==

== ENCOUNTER 2024-04-11 09:50 | Outpatient (AMB) | payer OTHER, SELFPAY ==
--- NOTE | 2024-04-11 09:53 | HO.NEPHOV_ITS ---
Vital Signs 04/11/24 09:54 Height 5 ft 11 in Weight 230 lb 2 oz BMI 32.1 BP 150/70 H Blood Pressure Location Lt brachial Position Sitting Pulse 79 Pulse Source Pulse Oximeter Pulse Oximetry (%) 92 Oxygen Delivery Method Room Air Intake Visit Reasons: 1 mnth f/u-Conf Supervisor Data Processing Required: No Accompanied by: Self / Same As Patient Allergies No Known Allergies Allergy (Verified 04/11/24 09:54) HPI Comments Details: Rik was seen in follow-up of his advanced chronic kidney disease, now has ESRD. He has significant proteinuria. He had a renal biopsy in the past which showed minimal change disease. He is on [facility] and [facility] transplant active list He denies any chest pain,proximal nocturnal dyspnea, orthopnea, urinary symptoms, orthostatic symptoms. He avoids nonsteroidal anti-inflammatories. He maintains good hydration. His acidosis is better. He has edema and SOBE on exertion. [facility] Medical History (Updated 10/12/23 @ 11:06 by Praneeth Gutierrez MD) Chronic kidney disease, stage 3 unspecified Hypertension Proteinuria Impaired fasting glucose Hyperlipidemia Asthma Family History Father Diabetes Heart disease Mother Hypertension Social History Alcohol intake: never Patient Tobacco Use Status: Never used Tobacco Review of Systems Const All systems reviewed & are unremarkable except as noted in HPI and below Physical Exam Vital Signs: Last Vital Signs Pulse 79 04/11/24 09:54 BP 150/70 H 04/11/24 09:54 Pulse Ox 92 04/11/24 09:54 Oxygen Delivery Method Room Air 04/11/24 09:54 BMI result Body Mass Index 32.1 Const General: comfortable and no acute distress Orientation/consciousness: patient oriented x3 HEENT Head: Yes normocephalic Mouth: Normal oral and palatal mucosa present Eyes EOM: EOMs intact bilaterally Neck Neck: Yes supple Resp Auscultation: clear to auscultation bilaterally Cardio Jugular venous distension: no JVD Rate: regular rate GI Palpation (GI): Soft to palpation Auscultation: normal bowel sounds General: Yes no CVA tenderness Back/Spine/Pelvis Back: no CVA tenderness Skin General skin exam: no rashes or lesions noted Neuro General: patient oriented x3 and moves all extremities Extrem Right upper extremity: edema Results Reviewed Nephrology Results: No Data to Display Assessment & Plan Assessment & Plan (1) CKD (chronic kidney disease) stage 5, GFR less than 15 ml/min: Code(s): N18.5 - Chronic kidney disease, stage 5 Category: Medical (2) Metabolic acidosis: Code(s): E87.20 - Acidosis, unspecified Category: Medical (3) Hypertension: Code(s): I10 - Essential (primary) hypertension Category: Medical Qualifiers: Hypertension type: primary hypertension Qualified Code(s): I10 - Essen tial (primary) hypertension Plan Rik has longstanding chronic kidney disease with hypertension & proteinuria. He had a renal biopsy in years close to 2018 which showed minimal change. Differential diagnosis was FSGS. He was treated with prednisone and cyclosporin at that time. He has lost significant weight. He is on benazepril, dose I increased to 40 mg daily. Inganikkie started him on lasix 440 mg bid. I reduced Nifedipine to one tablet daily. He is listed in [facility] and [facility]. I reduced NaHCO3 mg tid. He can continue calcium acetate 667 mg PO tid with meals. He maintains good hydration and avoids nonsteroidal anti-inflammatories. I did not make any other medication changes today. He is getting PD training. Answered all his questions Medications: New furosemide (Lasix) 40 mg PO BID 60 tabs 4RF Changed From benazepril 40 mg PO DAILY To benazepril 40 mg PO DAILY 90 days 90 tabs 3RF Coding Level of Care Code Est Pt Level 4 (85105) Diagnoses CKD (chronic kidney disease) stage 5, GFR less than 15 ml/min N18.5 Metabolic acidosis E87.20 Primary hypertension I10 Hypertension type: primary hypertension
[2024-04-11 09:54] VITALS: BP 150/70; PULSE 79; O2SAT 92; BMI 32.1
--- OUTSIDE RECORDS SUMMARY | 2024-04-11 10:33 | XMS_ITS | Encounter Summary ---
Author Organization [facility] Address [address] [facility] [address] [place] [address] Phone Care Team Providers Care Stock Turner Name Role Phone Ssuan Roque MD Primary Care Provider Encounter Details Date Type Department Care Team (Late st Contact Info) Description 07/21/2021 Telephone [facility] [address] [place] [address] Praneeth Gutierrez MD Social History Tobacco Use Types Packs/Day Years Used Date Smoking Tobacco: Never Smokeless Tobacco: Never Alcohol Use Standard Drinks/Week Comments No 0 (1 standard drink = 0.6 oz pur e alcohol) Sex and Gender Information Value Date Recorded Sex Assigned at Not on file Legal Sex Male 4:59 PM EST Gender Identity Not on file Sexual Orientation Not on file documented as of this encounter Miscellaneous Notes * Telephone Encounter - Jessica Chaney - 07/21/2021 3:56 PM EDT Pts pharmacy called, they received a drug interaction between the cyclosporine and fenofibrate. Would it still be ok for him to thaddeus both. Please advise CB# [phone] documented in this encounter Plan of Treatment Not on file documented as of this encounter Visit Diagnoses Not on filedocumented in this encounter Care Teams Stock Turner Relationship Specialty Start Date End Date Susan Roque MD [address] [place] [address] [address] [place] [id number] PCP - General 03/18/20 documented as of this encounter
--- OUTSIDE RECORDS SUMMARY | 2024-04-11 10:33 | XMS_ITS | Clinical Summary ---
Author Organization [facility] Address [address] [facility] [address] [place] [address] Phone Care Team Providers Care Podiatric Medicine Professor Name Role Phone Susan Roque MD Primary Care Provider Allergies No known active allergies Medications montelukast (SINGULAIR) 10 MG tablet Take 1 tablet by mouth 1 (one) time each day Active DOXAZOSIN MESYLATE PO Take 2 mg by mouth 1 (one) time each day Active metoprolol succinate XL (TOPROL XL) 50 MG 24 hr tablet Take 50 mg by mouth 1 (one) time each day Do not crush or chew. Active doxazosin (CARDURA) 2 MG tablet Take 1 tablet by mouth 1 (one) time each day 09/25/2021 Active Advair Diskus 250-50 MCG/ACT aerosol powder 10/12/2021 Acti ve cycloSPORINE (SandIMMUNE) 100 MG capsule Take 1 capsule by mouth in the morning and 1 capsule in the evening. 05/18/2022 Active ofloxacin (OCUFLOX) 0.3 % ophthalmic solution 05/03/2022 Active NIFEdipine XL (PROCARDIA XL) 60 MG 24 hr tabletIndicatio ns:Chronic kidney disease stage 3 (HCC) Take 2 tablets (120 mg total) by mouth 1 (one) time each day Do not crush, chew, or split. 180 tablet 3 02/22/2023 Active benazepril (Lotensin) 20 MG tabletIndicatio ns:Chronic kidney disease stage 3 (HCC),Essential hypertension,Im paired fasting glycemia Take 1 tablet (20 mg total) by mouth 1 (one) time each day 90 tablet 3 06/15/2023 5 Active Active Problems Problem Noted Date Diagnosed Date Minimal change disease 03/15/2023 Asthma 11/20/2021 Dyslipidemia 11/20/2021 Gout, not otherwise specified 11/20/2021 Impaired fasting glycemia 11/20/2021 Obese class II 07/21/2021 Hypertension 02/18/2021 Chronic kidney disease stage 3 09/04/2020 Essential hypertension 09/04/2020 Proteinuria 09/04/2020 Family History Medical History Relation Comments Diabetes Father Heart disease Father Hypertension Mother Relation Status Comments Father Alive Mother Alive Social History Tobacco Use Types Packs/Day Years Used Date Smoking Tobacco: Never Smokeless Tobacco: Never Tobacco Cessation:Counseling Given: Not Answered Alcohol Use Standard Drinks/Week Comments No 0 (1 standard drink = 0.6 oz pur e alcohol) Sex and Gender Information Value Date Recorded Sex Assigned at Not on file Legal Sex Male 4:59 PM EST Gender Identity Not on file Sexual Orientation Not on file Last Filed Vital Signs Vital Sign Reading Time Taken Comments Blood Pressure 140/72 03/17/2023 11:03 AM EST Pulse 66 03/17/2023 11:03 AM EST Temperature - - Respiratory Rate - - Oxygen Saturation 98% 03/17/2023 11:03 AM EST Inhaled Oxygen Concentration - - Weight 115 kg (254 lb 3.2 oz) 03/17/2023 11:03 A M EST Height 180.3 cm (5' 11 ) 03/17/2023 11:03 AM EST Body Mass Index 35.45 03/17/2023 11:03 AM EST Plan of Treatment Health Maintenance Due Date Last Done Comments Pneumococcal Vaccine: Pediat rics (0 to 5 Years) and At-Risk Patients (6 to 64 Years) (1 of 2 - PCV) 1966 Colorectal Cancer Screening: Annual FOBT 2010 Colorectal Cancer Screening: Colonoscopy 2010 Colorectal Cancer Screening: Sigmoidoscopy 2010 Influenza Vaccine (#1) 2023 Diabetes: Hemoglobin A1C 03/21/2024 05/20/2020 Diabetes: Ophthalmology Exam 03/21/2024 Diabetes: Pedal Pulse Checked 03/21/2024 Diabetes: Sensory Foot Exam 03/21/2024 Diabetes: Visual Foot Exam 03/21/2024 Hepatitis B Vaccine Aged Out No longe r eligible based on patient's age to complete this topic Procedures Procedure Name Priority Date/Time Associated Diagnosis Comments EXT RESULT ENTRY Routine 05/20/2020 from Last 3 Months or Most Recently Relevant to Health Maintenance Results * (ABNORMAL) EXT RESULT ENTRY (05/20/2020) WBC 12.1(A) 3.3 - 10.0 10*3/ML Red Blood Cell Count 5.38 Hemoglobin 16.6 13.5 - 17.5 Hematocrit 48.9 41.0 - 53.0 Platelets 211 150 - 399 10*3/UL MCV 90.9 82.0 - 108.0 Sodium 141 137 - 147 Potassium 4.7 3.4 - 5.5 Chloride 102 99 - 108 Bicarbonate (CO2) 27 22 - 30 mmol/L Anion Gap 12 <=30 MMOL/L Glucose 110 60 - 200 BUN 27(A) 4 - 21 mg/dL Creatinine 2.00(A) 0.60 - 1.30 mg/dL Calcium 10.0 8.7 - 10.7 mg/dL eGFR Non-Afr Belizean 37 eGFR 42 Hemoglobin A1C 6.0 4.0 - 6.0 05/20/2020 us Historical Provider LAB BLOOD ORDERABLES Bee l Result from Last 3 Months or Most Recently Relevant to Health Maintenance Insurance [facility] [address] Care Teams Podiatric Medicine Professor Relationship Specialty Start Date End Date Susan Roque MD [address] [place] [address] [address] [place] [phone] PCP - General 03/18/20
== END 2024-04-11 10:17 | disposition home or self-care (01) ==
PROVIDERS: PCP Internal Medicine Endocrinology, Diabetes & Metabolism; Visit Provider Internal Medicine Nephrology
DX: N18.5 Chronic kidney disease, stage 5 (principal); E87.20 Acidosis, unspecified; I12.0 Hypertensive chronic kidney disease with stage 5 chronic kidney disease or end stage renal disease
CPT/HCPCS: 99214

== ENCOUNTER → 2024-04-11 09:50 | Outpatient (BNVA) | payer OTHER, SELFPAY | PROVIDERS: PCP Internal Medicine Endocrinology, Diabetes & Metabolism; Visit Provider Internal Medicine Nephrology ==

== ENCOUNTER → 2024-05-06 | Outpatient (BNV) | payer OTHER, SELFPAY | PROVIDERS: PCP Internal Medicine Endocrinology, Diabetes & Metabolism; Visit Provider Internal Medicine Nephrology | DX: N18.6 End stage renal disease (principal) | CPT/HCPCS: 90962 ==

== ENCOUNTER → 2024-06-06 | Outpatient (BNV) | payer OTHER, SELFPAY | PROVIDERS: Visit Provider Internal Medicine Nephrology | DX: N18.6 End stage renal disease (principal) | CPT/HCPCS: 90962 ==

== ENCOUNTER 2024-06-22 10:25 | Outpatient (REF) | payer OTHER, SELFPAY ==
--- NOTE | ~2024-06-22 | CT_ITS ---
EXAMINATION: CT ABDOMEN PELVIS WITH IV CONTRAST HISTORY: R10.9 - Unspecified abdominal pain COMPARISON: There are no prior studies for comparison. TECHNIQUE: CT scan of the abdomen and pelvis was performed following administration of 85 mL Omnipaque 350 using standard departmental protocol. Coronal and sagittal reformatted images were generated and reviewed. Oral contrast material was not administered at the request of the referring physician. This CT exam was performed with one or more of the following dose reduction techniques: automated exposure control, adjustment of the mA and/or kV according to patient size, use of iterative reconstruction technique. DLP: 513 mGy-cm FINDINGS: LOWER CHEST: There is bronchial wall thickening in the lower lobes. The visualized lung bases are clear. There is no pleural effusion. CARDIOVASCULATURE: The heart is normal in size. There is no pericardial effusion. LIVER: The liver is normal in size and contour. No liver mass is identified. The hepatic and portal veins are patent. GALLBLADDER / BILE DUCTS: The gallbladder is unremarkable. There is no intra or extrahepatic biliary ductal dilatation. SPLEEN: The spleen is enlarged. No focal splenic lesion is identified. PANCREAS: The pancreas is unremarkable in appearance. ADRENAL GLANDS: Within normal limits. KIDNEYS/RETROPERITONEUM: The kidneys are atrophic. No renal calculi are identified. There is no hydronephrosis. No renal masses are identified. LYMPH NODES: No abdominal or pelvic lymphadenopathy. VASCULATURE: The abdominal aorta demonstrates atherosclerotic calcification, but is normal in caliber. MESENTERY/PERITONEUM: There is a small amount of free fluid in the upper abdomen and in the pelvis consistent with the patient's history of peritoneal dialysis. A peritoneal dialysis catheter is seen in the pelvis. No masses. There is no free intraperitoneal gas. STOMACH: The stomach is collapsed, limiting evaluation. SMALL BOWEL: The small bowel is normal in caliber. COLON: The colon is unremarkable. APPENDIX: The appendix is not seen, however no inflammatory changes are seen adjacent to the cecum. URINARY BLADDER/PELVIC ORGANS: The urinary bladder is unremarkable. The prostate is normal in size. BONES / SOFT TISSUES: There is a fat-containing right inguinal hernia. There is degenerative disc disease of the spine. CT/CT abdomen pelvis w IV con IMPRESSION: 1. Peritoneal dialysis catheter in place. Small amount of free fluid. 2. Splenomegaly. No inflammatory process is identified. Electronically signed by: Leonardo Love MD 06/22/2024 12:00 PM EDT RP
[2024-06-22] MEDS: iohexoL 350 MG/ML 100 ML INFUS..BTL IV (11:49)
--- OUTSIDE RECORDS SUMMARY | 2024-06-22 12:31 | XMS_ITS | Encounter Summary ---
Author Organization [facility] Address [address] [facility] [address] [place] [address] Phone Care Team Providers Care Engraver Tender Name Role Phone Susan Roque MD Primary Care Provider Encounter Details Date Type Department Care Team (Late st Contact Info) Description 07/21/2021 Telephone [facility] [address] [place] [address] Praneeth Gutierrez MD Social History [...] him to thaddeus both. Please advise CB# [phone] documented in this encounter Plan of Treatment Not on file documented as of this encounter Visit Diagnoses Not on filedocumented in this encounter Care Teams Engraver Tender Relationship Specialty Start Date End Date Susan Roque MD [address] [place] [address] [address] [place] [phone] PCP - General 03/18/20 documented as of this encounter
--- OUTSIDE RECORDS SUMMARY | 2024-06-22 12:31 | XMS_ITS | Clinical Summary ---
Author Organization [facility] Address [address] [facility] [address] [place] [address] Phone Care Team Providers Care Component Technician Name Role Phone Susan Roque MD Primary [...] time each day 90 tablet 3 06/15/2023 Active Active Problems Problem Noted Date Diagnosed [...] Due Date Last Done Comments Pneumococcal Vaccine: 50+ Ye ars (1 of 2 - PCV) 1980 Colorectal Cancer Screening: Annual FOBT 2010 Colorectal Cancer Screening: Colonoscopy 2010 Colorectal Cancer Screening: Sigmoidoscopy 2010 Diabetes: Hemoglobin A1C 03/21/2024 05/20/2020 Diabetes: Ophthalmology Exam 03/21/2024 Diabetes: Pedal Pulse Checked 03/21/2024 Diabetes: Sensory Foot Exam 03/21/2024 Diabetes: Visual Foot Exam 03/21/2024 Influenza Vaccine (Season Ended) 2024 Hepatitis B Vaccine Aged Out No longe [...] 10.0 8.7 - 10.7 mg/dL eGFR Non-Afr Bulgarian 37 eGFR 42 Hemoglobin A1C 6.0 4.0 - 6.0 05/20/2020 [facility] Provider LAB BLOOD ORDERABLES Bee l Result from Last 3 Months or Most Recently Relevant to Health Maintenance Insurance [employer] [place] [facility] [place] [address] Care Teams Component Technician Relationship Specialty Start Date End Date Susan Roque MD [address] [place] [address] [place] [address] PCP - General 03/18/20
[2024-06-23 13:56] LABS: Creatinine POC 6.4 mg/dL (0.5-1.4); GFR POC 9
== END 2024-06-22 10:26 | disposition home or self-care (01) ==
LOC: HO.CT 10:25
PROVIDERS: Visit Provider Internal Medicine Nephrology
DX: R10.9 Unspecified abdominal pain (principal); N18.6 End stage renal disease; Z99.2 Dependence on renal dialysis
CPT/HCPCS: 74177; Q9967

== ENCOUNTER → 2024-06-22 10:29 | Outpatient (BNV) | payer OTHER, SELFPAY | PROVIDERS: Visit Provider Radiology Diagnostic Radiology | DX: R16.1 Splenomegaly, not elsewhere classified (principal) | CPT/HCPCS: 74177 ==

== ENCOUNTER → 2024-07-06 | Outpatient (BNV) | payer OTHER, SELFPAY | PROVIDERS: Visit Provider Internal Medicine Nephrology | DX: N18.6 End stage renal disease (principal) | CPT/HCPCS: 90962 ==

== ENCOUNTER 2025-02-27 14:36 | Outpatient (AMB) | payer OTHER, SELFPAY ==
[2025-02-27 14:59] VITALS: BP 132/72; PULSE 66; O2SAT 96
--- NOTE | 2025-02-27 14:59 | HO.NEPHOV ---
Vital Signs 02/27/25 14:59 Height 5 ft 11 in BP 132/72 Blood Pressure Location Lt brachial Position Sitting Pulse 66 Pulse Source Pulse Oximeter Pulse Oximetry (%) 96 Oxygen Delivery Method Room Air Intake Visit Reasons: Post Transplant FU Skid Road Man Required: No Accompanied by: Self / Same As Patient Allergies Seasonal Allergies Allergy (Unknown, Verified 02/27/25 15:01) Unknown HPI Comments Details: I had the pleasure of seeing Mr Decker in follow up of his renal transplant. His primary renal disease was minimal change vs FSGS ?/ hypertensive nephropathy( was treated with cyclosporin & prednisone with partial response & slow progression over 30 years). 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 His PRA was 0%. EBV D/R was +/+, CMV -/-. EBV PCR was negative . Induction was given using Campath and methylprednisone. He had AFib post op( not on anticoagulation as CHADVASC was 1) along with difficult Leggett placement intraoperatively(done by Urology)along with hypospadiasis. He is maintained on tacrolimus but recently had oral candidiasis and was treated with Nystatin. He recently had a right inguinal hernia diagnosed for which he has seen the surgeon.His graft function has been very good. His transplant USS on 10/12/24 did not show any hydronephrosis. His last Prospera was negative( 0.24 on 01/01/25). He is maintained on Bactrim and Valcyte for 6 months post transplant. His BK blood PCR was negative on 01/29/25. 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 has sleep apnea STOP BANG score of 4- needs a sleep study). His BP has been on target on Amlodipine and Metoprolol. He feels well [facility] Medical History (Updated 06/20/24 @ 13:54 by Praneeth Gutierrez MD) Chronic kidney disease, stage 3 unspecified Hypertension Proteinuria Impaired fasting glucose Hyperlipidemia Asthma Surgical History (Updated 02/27/25 @ 15:26 by Praneeth Gutierrez MD) Kidney transplanted (~09/2024) Family History Father Diabetes Heart disease Mother Hypertension Social History Alcohol intake: never Patient Tobacco Use Status: Never used Tobacco Review of Systems Const All systems reviewed & are unremarkable except as noted in HPI and below Physical Exam Vital Signs: Last Vital Signs Pulse 66 02/27/25 14:59 BP 132/72 02/27/25 14:59 Pulse Ox 96 02/27/25 14:59 Oxygen Delivery Method Room Air 02/27/25 14:59 Const General: comfortable and no acute distress Orientation/consciousness: patient oriented x3 HEENT Head: Yes normocephalic Mouth: Normal oral and palatal mucosa present Eyes EOM: EOMs intact bilaterally Neck Neck: Yes supple Resp Auscultation: clear to auscultation bilaterally Cardio Jugular venous distension: no JVD Rate: regular rate GI Palpation (GI): Soft to palpation Auscultation: normal bowel sounds General: Yes no CVA tenderness Back/Spine/Pelvis Back: no CVA tenderness Skin General skin exam: no rashes or lesions noted Neuro General: patient oriented x3 and moves all extremities Extrem General: Yes no pedal edema Assessment & Plan Assessment & Plan (1) Hypertension: Code(s): I10 - Essential (primary) hypertension Category: Medical Qualifiers: Hypertension type: primary hypertension Qualified Code(s): I10 - Essential (primary) hypertension (2) Renal transplant recipient: Code(s): Z94.0 - Kidney transplant status Category: Surgical Plan His graft function has been very good. His transplant USS on 10/12/24 did not show any hydronephrosis. His last Prospera was negative( 0.24 on 01/01/25). He is maintained on Bactrim and Valcyte for 6 months post transplant. His BK blood PCR was negative on 01/29/25. 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 has sleep apnea STOP BANG score of 4- needs a sleep study). His BP has been on target on Amlodipine and Metoprolol. Follow up labs ordered. Answered all questions Orders: Orders Complete Blood Count Auto Diff 2 Months I10 - Essential (primary) hypertension, Z94.0 - Kidney transplant status Electrolytes 2 Months I10 - Essential (primary) hypertension, Z94.0 - Kidney transplant status Phosphorus 2 Months I10 - Essential (primary) hypertension, Z94.0 - Kidney transplant status Magnesium 2 Months I10 - Essential (primary) hypertension, Z94.0 - Kidney transplant status Alanine Aminotransferase 2 Months I10 - Essential (primary) hypertension, Z94.0 - Kidney transplant status Calcium 2 Months I10 - Essential (primary) hypertension, Z94.0 - Kidney transplant status Blood Urea Nitrogen 2 Months I10 - Essential (primary) hypertension, Z94.0 - Kidney transplant status Creatinine 2 Months I10 - Essential (primary) hypertension, Z94.0 - Kidney transplant status Tacrolimus Prograf 2 Months I10 - Essential (primary) hypertension, Z94.0 - Kidney transplant status Other Ref Test - Misc 2 Months I10 - Essential (primary) hypertension, Z94.0 - Kidney transplant status Aspartate Amino Transferase 2 Months I10 - Essential (primary) hypertension, Z94.0 - Kidney transplant status Coding Level of Care Code Est Pt Level 4 (73098) Diagnoses Primary hypertension I10 Hypertension type: primary hypertension Renal transplant recipient Z94.0
--- OUTSIDE RECORDS SUMMARY | 2025-02-27 15:54 | XMS_ITS | Clinical Summary ---
Author Organization [facility] Address [address] [facility] [address] [place] [address] Phone Care Team Providers Care Shift Commander Name Role Phone Susan Roque MD Primary [...] Diabetes: Visual Foot Exam 03/21/2024 Influenza Vaccine (#1) 2024 04/05/2024 Hepatitis B Vaccine Aged Out 05/18/2024 No longe r eligible based on patient's [...] 10.0 8.7 - 10.7 mg/dL eGFR Non-Afr Scottish 37 eGFR 42 Hemoglobin A1C 6.0 4.0 - 6.0 05/20/2020 us Historical Provider LAB BLOOD ORDERABLES Bee l Result from Last 3 Months or Most Recently Relevant to Health Maintenance Insurance [facility] [place] [phone] Care Teams Shift Commander Relationship Specialty Start Date End Date Susan Roque MD [address] [place] [address] [place] [phone] PCP - General 03/18/20
--- OUTSIDE RECORDS SUMMARY | 2025-02-27 15:54 | XMS_ITS | Continuity of Care Document ---
Author Organization [facility] 2 [facility] [address] [place] [address] Phone [phone] Care Team Providers Care Supervisor Agency Appointments Name Role Phone Susan Roque M.D. 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 06/27/2024 Doxazosin [id number] Tablets Take 1 Tablet By Mouth Every Day as Directed 90tamarcia Roque M.D. 06/25/2022 Metoprolol Succinate ER50mg Tablets ER 24HR Take 1 Tablet By Mouth Every Day 90tabs Susan Roque M.D. 06/25/2022 Advair [id number]/Act Aerosol Unknown Nifedipine ER60mg Tablets ER 24HR 1 tab by mouth once a day Unknown Montelukast Sueshf17uc Tablets 1 by mouth every day Unknown Multivitamin AdultsTablets 1 by mouth every day Susan Roque M.D. ProbioticTablets DR 1 by mouth every day Susan Roque M.D. Benazepril GAM18ts Tablets 1 tablet by mouth every day Unknown Nsyawsnkbu76gr Tablets 1 by mouth twice a day Unknown Calcium Acetate (Phos Binder)667mg Tablets 2 tid Unknown 000 Albuterol Sulfate VIN389(90Base) mcg/Act Aerosol use 2 puffs every 4 to 6 hours as needed Unknown Vital Signs Date Vital Result Comment 04/25/2024 1:01pm BP Systolic 142 mmHg BP Diastolic 82 mmHg Results Test Acquired Date Facility Test Result H/L Range Note Hemoglobin A1c 04/25/2024 Inhouse Hemoglobin A1c 4.8% Glucose Fingerstick 04/25/2024 Inhouse Glucose Fingerstick 83 Glucose Fingerstick 09/06/2023 Inhouse Glucose Fingerstick 84 Hemoglobin A1c 09/06/2023 Inhouse Hemoglobin A1c 5.5% Ferritin 03/12/2023 [facility] Ferritin 690 NG/ML High (16-294 ) Hemoglobin A1c 03/12/2023 Inhouse Hemoglobin A1c 5.6% Glucose Fingerstick 03/12/2023 Inhouse Glucose Fingerstick 139 PSA Screen 03/12/2023 [facility] PSA Screen 0.9 NG/ML (0-4) 1 Immunofixation Serum 03/12/2023 [facility] Immunoglobulin Igg 798 mg/dL (700-16 00) Immunoglobulin Iga 201 mg/dL (70-400 ) Immunoglobulin Igm 54 mg/dL (40-230 ) Immunofix Normal immunofix <SEE NOTE> 2 Iron & Tibc 03/12/2023 [facility] Iron 32 g/dL Low (45-160 ) Unsaturated Iro n Binding Leonore 209 g/dL (110-37 0) Est T. Iron Bin d Capacity 241 g/dL (155-53 0) % Iron Saturation 13 % Low (20-55 ) Complete Abc With Diff 03/12/2023 [facility] WBC 11.1 K/MM3 High [...] 0) Lymph # 1.0 K/MM3 (0.8-3. 1) Parmer# 0.9 K/MM3 (0.4-1. 3) Eo # 0.2 K/MM3 (0.0-0. 4) Baso # 0.0 K/MM3 (0.0-0. 1) Abs. Imm Gran 0.0 K/MM3 Neut 80.9 % High (44-76) Lymph 9.1 % Low (15-43) Monocyte 7.7 % (4.5-10 .5) Eo 1.6 % (0-6) Baso 0.4 % (0-2) Imm Gran 0.3 % Cortisol 03/12/2023 [facility] Cortisol 14.8 g/dL 3 Lipid Panel 03/12/2023 [facility] Cholesterol, Total 166 mg/dL (<200) Triglyceride 134 mg/dL (<150) HDL Chol 34 mg/dL Low (>39) LDL Cholesterol , Calculated 105 mg/dL (0-130) Non HDL Cholesterol (Calc) 132 mg/dL (<160) Comprehensive Metabolic Panl 03/12/2023 [facility] Glucose 140 mg/dL High [...] (0-41) Estimated GFR Creatinine 16 ML/MIN/1.73 M2 4 Renal Function Panel 09/30/2022 [facility] Glucose 105 mg/dL High [...] ML/MIN/1.73 M2 5 TP/CR Ratio, Urine 09/30/2022 [facility] TP/CR Ratio 3.44 High (0-0.2) Urine Protein 249 mg/dL Urine Creat 72.5 mg/dL Cyclosporine 09/30/2022 [facility] Cyclosporine 64 NG/ML Low (100-35 0) Renal Function Panel 08/19/2022 [facility] Glucose 110 mg/dL High [...] ML/MIN/1.73 M2 6 TP/CR Ratio, Urine 08/19/2022 [facility] TP/CR Ratio 3.44 High (0-0.2) Urine Protein 249 mg/dL Urine Creat 72.5 mg/dL Cortisol 11/25/2021 [facility] Cortisol 2.1 g/dL 7 1 TEST PERFORMED USING THE CHRISTOPHE ELECTROCHEMILLUMINESCENCE TOTAL PSA ASSAY. PSA VALUES OBTAINED WITH OTHER ASSAY METHODS OR KITS CANNOT BE USED INTERCHANGEABLY. 2 Interpreted by Tamika Nobles MD 3 Reference Range: 6-10 am: 6.0-18.4 ug/dL 4-8 pm: 2.7-10.5 ug/dL 4 Creatinine based est imated glomerular filtration (eGFR) in adults is calculated using the National [employer] recommended 2021 CKD-EPI equation. Estimates GFR from serum creatinine, age and sex. 5 Creatinine based est imated glomerular filtration (eGFR) in adults is calculated using the National [employer] recommended 2021 CKD-EPI equation. Estimates GFR from serum creatinine, age and sex. 6 Creatinine based est imated glomerular filtration (eGFR) in adults is calculated using the National [employer] recommended 2021 CKD-EPI equation. Estimates GFR from serum creatinine, age and sex. 7 Reference Range: 6-10 am: 6.0-18.4 ug/dL 4-8 pm: 2.7-10.5 ug/dL Procedures Date Code Description Status 03/12/2023 66612 Collection Of Venous Blood B y Venipuncture Completed 11/20/2021 NSHOWOFF No Show Office Visit Complet ed Medical Devices Description No Information Available Encounters Type Date Location Provider Dx Diagnosis Office Visit 04/25/2024 8:45a Main Office Susan Roque M.D. I10 Essential (primary) hypertension N18.6 End stage renal dise ase Z99.2 Dependence on renal dialysis J45.40 Moderate persistent asthma, uncomplicated E11.9 Type 2 diabetes rupert itus without complications Assessments Date Code Description Provider 04/25/2024 I10 Essential (primary) hyperten zaheer Susan Roque M.D. 04/25/2024 N18.6 End stage renal disease Kimb ralph Roque M.D. 04/25/2024 Z99.2 Peritoneal dialysis status K reinier Roque M.D. 04/25/2024 J45.40 Moderate persist ent asthma, uncomplicated Susan Roque M.D. 04/25/2024 E11.9 Type 2 diabetes mellitus without complications Susan Roque M.D. Plan of Treatment No Information Available Functional Status Description No Information Available Mental Status Description No Information Available Referrals Refer to Reason for Referral Status Appt Dustin Olivia MD Created [address] [facility] [address] [place] [address] [phone] [facility] Closed [address] [place] [address] [address] [place] [address] [phone] [facility] Had a nuclear stress test done and showed a mild heart attack Patient Declined 05/26/2024 [address] [facility] [address] [place] [address] [phone] Matt Dacosta MD Closed [address] [place] [address] [phone] Sleep Medicine [facility] HOME SLEEP STUDY RULE OUT SLEEP APNEA DX OBESITY, HYPERTENSION, DIABETES AND CHRONIC KIDNEY DISEASE STAGE [address] [place] [address] [phone] Matt Dacosta MD CHRONIC KIDNEY DISEASE Closed [address] [place] [address] [phone]
--- OUTSIDE RECORDS SUMMARY | 2025-02-27 15:54 | XMS_ITS | Clinical Summary ---
Author Organization [facility] Address [facility] [employer] [address] [address] Phone Care Team Providers Care Assembler Mechanical Ordnance Name Role Phone Susan Roque MD Primary Care Prov ider Allergies No known active allergies Medications fluticasone propion-salmeter oL (ADVAIR DISKUS) 250-50 mcg/dose DISKUS Inhale 250 mcg/actuation of fluticasone into the lungs 2 (two) times a day. Active benazepril (LOTENSIN) 20 MG tablet Take 20 mg by mouth daily. Active doxazosin (CARDURA) 2 MG tablet Take 2 mg by mouth nightly at bedtime. Active metoprolol succinate (TOPROL-XL) 50 MG 24 hr tablet Take 50 mg by mouth daily. Active montelukast (SINGULAIR) 10 mg tablet Take 10 mg by mouth nightly at bedtime. Active therapeutic multivitamin tablet Take 1 tablet by mouth daily. Active NIFEdipine (ADALAT CC) 60 MG 24 hr tablet Take 60 mg by mouth 2 (two) times a day. Active sodium bicarbonate 325 MG tablet Take 2 tablets (650 mg total) by mouth daily AND 1 tablet (325 mg total) nightly at bedtime. Prn indigestion. 4 Active calcium acetate,phosphat bind, (PHOSLO) 668 mg (169 mg elemental) tablet Take 1 tablet (667 mg total) by mouth 3 (three) times a day with meals. 11/05/202 4 Active Active Problems Problem Noted Date Diagnosed Date Hypertensive disorder 12/28/2023 Proteinuria 12/28/2023 Impaired fasting glucose 12/28/2023 Hyperlipidemia 12/28/2023 Asthma 12/28/2023 Family History Medical History Relation Comments Coronary artery disease Father Stroke Father COPD Mother Hypertension Mother Diabetes mellitus Paternal Uncle Relation Status Comments Brother Alive Daughter 1 Alive Daughter 2 Alive Father (Age 85) Mother Alive Paternal Uncle Sister Alive Social History Tobacco Use Types Packs/Day Years Used Date Smoking Tobacco: Never Passive Smoke Exposure: Never Smokeless Tobacco: Never Tobacco Cessation:Counseling Given: No Alcohol Use Standard Drinks/Week Comments Not Currently 0 (1 standard drink = 0.6 oz pur e alcohol) Education Answer Date Recorded Are you interested in more education? Not on caro e 11/03/2023 Are you concerned about learning? Not on file 11/03/2023 No 11/03/2023 No 11/03/2023 Digital Access Answer Date Recorded No 11/03/2023 No 11/03/2023 Reliable internet access at home? Not on file 11/03/2023 Device with a working camera? Not on file Sex and Gender Information Value Date Recorded Sex Assigned at Male 10/07/2023 10:05 AM EDT Legal Sex Male 10:01 AM EDT Gender Identity Male 10/07/2023 10:05 AM EDT Sexual Orientation Straight 10/07/2023 10 :05 AM EDT Last Filed Vital Signs Vital Sign Reading Time Taken Comments Blood Pressure 169/81 01/11/2024 11:44 AM EST Pulse 61 01/11/2024 11:44 AM EST Temperature 36.3 C (97.3 F) 01/11/2024 11:44 AM EST Respiratory Rate - - Oxygen Saturation 95% 01/11/2024 11:44 AM EST Inhaled Oxygen Concentration - - Weight 105.2 kg (232 lb) 01/11/2024 11:44 AM EST Height 180.3 cm (5' 11 ) 01/11/2024 11:44 AM EST Body Mass Index 32.36 01/11/2024 11:44 AM EST Plan of Treatment Health Maintenance Due Date Last Done Comments LIPID PANEL 1961 POTASSIUM LEVEL 1961 DEPRESSION SCREENING 1973 SCREENING FOR DIABETES 1996 COLOGUARD 2006 COLONOSCOPY 2006 COLORECTAL CANCER SCREENING 2006 FIT TEST 2006 FOBT 2006 SIGMOIDOSCOPY 2006 VIRTUAL COLONOSCOPY 2006 RSV VACCINE (1 - Risk 50-74 years 1-dose series) 2011 ZOSTER VACCINES (1 of 2) 2011 BLOOD PRESSURE 07/10/2024 01/11/2024 INFLUENZA VACCINE (#1) 2024 04/05/2024 COVID-19 VACCINE (2 - 2024-2 6 season) 2024 07/26/2020 CREATININE LEVEL 01/10/2025 01/11/2024 Adult Td,Tdap Booster 11/16/2029 11/17/2019 SMOKING STATUS SCREENING (On ce After 26 Yrs) Completed 01/03/2024 HEPATITIS C SCREENING Completed 01/11/2024 , 01/11/2024, 01/11/2024 HIV ONE-TIME SCREENING (18-6 5 YEARS) Completed 01/11/2024 PNEUMOCOCCAL VACCINES (50+ years) Completed 04/05/2024 HEPATITIS A VACCINES Aged Out No long er eligible based on patient's age to complete this topic HIB VACCINES Aged Out No longer eligi ble based on patient's age to complete this topic MENINGOCOCCAL VACCINES (ACWY) Aged Out No longer eligible based on patient's age to complete this topic MENINGOCOCCAL VACCINES (B) Aged Out N o longer eligible based on patient's age to complete this topic Medical Devices Not on file Procedures Procedure Name Priority Date/Time Associated Diagnosis Comments HEPATITIS C ANTIBODY, QUALITATIVE Routine 01/11/2024 11:28 AM EST Need for hepatitis C screening test CREATININE WITH ESTIMATED GLOMERULAR FILTRATION RATE (EGFR) Routine 01/11/2024 11:28 AM EST Pre-transplant evaluation for end stage renal disease from Last 3 Months or Most Recently Relevant to Health Maintenance Results * (ABNORMAL) Creatinine/eGFR (01/11/2024 11:28 AM EST) CREATININE 8.40(H) 0.60 - 1.30 mg/dL [facility] EGFR 7(L) >59 mL/min/1. 73m2 [facility] Comment:Estimated glomerular filtration rate calculated using the CKD-EPI refit equation. Blood 01/11/2024 11:2 8 AM EST 01/11/2024 2:09 PM EST Oz Garrido MD LAB BLOOD BKR ORDERABLES Final Result [address] [address] * Hepatitis C antibody, qualitative (01/11/2024 11:28 AM EST) HCV ANTIBODY Negative Negative [facility] Comment:Antibodies to HCV no t detected. Does not exclude the possibility of exposure to HCV. Blood 01/11/2024 11:2 8 AM EST 01/11/2024 2:08 PM EST Oz Garrido MD LAB BLOOD BKR ORDERABLES Final Result [address] [address] from Last 3 Months or Most Recently Relevant to Health Maintenance [facility]PO [facility] POS EPO [facility] POS EPO [facility] POS EPO [facility] POS EPO Advance Directives For more information, please contact: [phone] (9AM - 5PM [facility], Wednesday-Wednesday) Documents on File Type Date Recorded 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 It is not the complete legal health record.[facility]
--- OUTSIDE RECORDS SUMMARY | 2025-02-27 15:55 | XMS_ITS | Encounter Summary ---
Author Organization [facility] Address [address] [facility] [address] [place] [address] Phone Care Team Providers Care Review Engineer Name Role Phone Susan Roque MD Primary Care Provider Encounter Details Date Type Department Care Team (Late st Contact Info) Description 07/21/2021 Telephone [facility] [address] [facility] [address] [place] [address] Praneeth Gutierrez MD [address] [place] [id number] Social History Tobacco Use Types Packs/Day Years [...] him to thaddeus both. Please advise CB# [phone] documented in this encounter Plan of Treatment Not on file documented as of this encounter Visit Diagnoses Not on filedocumented in this encounter Care Teams Review Engineer Relationship Specialty Start Date End Date Susan Roque MD [address] [place] [address] [address] [place] [address] PCP - General 03/18/20 documented as of this encounter
== END 2025-02-27 15:34 | disposition home or self-care (01) ==
LOC: HO.HKAS 14:37
PROVIDERS: Visit Provider Internal Medicine Nephrology
DX: I10 Essential (primary) hypertension (principal); Z94.0 Kidney transplant status
CPT/HCPCS: 99214